=== PATIENT | female | born 1985 | race Caucasian/White ===

== ENCOUNTER 2021-08-01 13:05 | Emergency (ER) | payer MEDICARE, OTHER ==
[~2021-08-01] VITALS: Ht 167.6 cm; Wt 91.3 kg
[2021-08-01 13:39] VITALS: BP 130/81
[2021-08-01 14:33] LABS: INFLUENZA A PATIENT NEGATIVE (NEGATIVE); INFLUENZA B PATIENT NEGATIVE (NEGATIVE)
--- NOTE | 2021-08-01 15:20 | RAD ---
INDICATION: Reason: cough, chest tightness / Spl. Instructions: / History: COMPARISON: None. FINDINGS: Single view of chest obtained. Cardiac mediastinal silhouette is unremarkable. Mild haziness left lung base. No gross osseous destructive lesion. IMPRESSION: * Mild haziness left lung base could be secondary to atelectasis but mild infiltrate not excluded. Electronically signed by: Tank Hickman MD (08/01/2021 3:18 PM) [id number]
[2021-08-01] MEDS ORDERED: CEFD300C PO (16:01)
[2021-08-01] MEDS ORDERED: ONDA4TAB12 PO (16:09)
--- NOTE | 2021-08-01 16:09 | PHYS DOC ---
Past Medical History Additional Past Medical Histor: PTSD Past Surgical History: Hysterectomy Smoking Status: Current Every Day Smoker Alcohol Use: None General Adult EDM: Chief Complaint: GENERALIZED BODY ACHES HPI: HPI: Patient is a 35 year old female without pertinent past medical history who presents with 4-5 days of cough, congestion, fever, chills, body aches. Describes mild shortness of breath and chest pressure. Slightly worse with deep breaths. No leg swelling, recent surgery, hx of vte, blood thinners, estrogen containing medications, or hemoptysis. She believes she has had exposure to covid due to being around her niece who was ill with a URI. partially vaccinated against covid. 1 dose of mrna vaccine. Review of Systems: Review of Systems: Constitutional: Reports fever and chills Eyes: Denies change in visual acuity. [] HENT: Reports nasal congestion Respiratory: Reports cough and shortness of Cardiovascular: Reports pleuritic chest tightness. Denies lower extremity edema. GI: Denies abdominal pain, nausea, vomiting, bloody stools or diarrhea. [] : Denies dysuria. [] Musculoskeletal: Denies back pain or joint pain. [] Integument: Denies rash. [] Neurologic: Denies headache, focal weakness or sensory changes. [] Psychiatric: Denies depression or anxiety. [] Heart Score: C/O Chest Pain: No Allergies: Allergies: Allergies Coded Allergies Type Severity Reaction Last Updated Verified Penicillins Allergy Mild Rash 08/01/21 Yes Physical Exam: PE: Constitutional: Well developed, well nourished, no acute distress, non-toxic appearance. [] HENT: Normocephalic, atraumatic Neck: Normal range of motion, no tenderness, supple, no stridor. [] Cardiovascular:Heart rate regular rhythm, no murmur [] Lungs & Thorax: Bilateral breath sounds clear to auscultation [] Abdomen: Bowel sounds normal, soft, no tenderness, no masses, no pulsatile masses. [] Skin: Warm, dry, no erythema, no rash. [] Back: No tenderness, no CVA tenderness. [] Extremities: No tenderness, no cyanosis, no clubbing, ROM intact, no edema. [] Neurologic: Alert and oriented X 3, normal motor function, normal sensory function, no focal deficits noted. [] Psychologic: Affect normal, judgement normal, mood normal. [] Current Patient Data: Labs: Laboratory Tests Test 08/01/21 14:05 Influenza Type A Antigen Negative (NEGATIVE) Influenza Type B Antigen Negative (NEGATIVE) SARS-CoV-2 Antigen (Rapid) Negative (NEGATIVE) Vital Signs: Vital Signs Date Time Temp Pulse Resp B/P (MAP) Pulse Ox O2 Delivery O2 Flow Rate FiO2 08/01/21 13:39 97.5 82 18 130/81 (97) 96 Room Air 97.5 EKG: EKG: [] Sinus rhythm. Rate 72. Normal axis. Normal intervals. No ischemic changes. Radiology/Procedures: Radiology/Procedures: [] Impression: [facility] [address] [place], [place] [id number] IMAGING REPORT Signed PATIENT: MATI TUCKER JACCOUNT: [id number] : 1985 LOCATION: ER AGE: 35 SEX: F EXAM STATUS: REG ER ORD. PHYSICIAN: FATIMAH BYRD MD REASON: cough, chest tightness PROCEDURE: CHEST AP ONLY INDICATION: Reason: cough, chest tightness / Spl. Instructions: / History: COMPARISON: None. FINDINGS: Single view of chest obtained. Cardiac mediastinal silhouette is unremarkable. Mild haziness left lung base. No gross osseous destructive lesion. IMPRESSION: * Mild haziness left lung base could be secondary to atelectasis but mild infiltrate not excluded. Electronically signed by: Alissa Hickman MD (08/01/2021 3:18 PM) [id number] DICTATED and SIGNED BY: ALISSA HICKMAN MD DATE: 08/01/21 [id number] 0 Course & Med Decision Making: Course & Med Decision Making Pertinent Labs and Imaging studies reviewed. (See chart for details) Patient is a 35-year-old female without pertinent past medical history presents with 4-5 days of cough, congestion, myalgias, subjective fever, and mild shortness of breath and chest tightness. On arrival is afebrile, with normal heart rate, BP, and satting well on room air. Normal work of breathing and clear auscultatory exam. Her rapid Covid test is negative. PCR is pending. Chest x-ray shows faint o pacity in the left base but potentially represent pneumonia given her symptom complex. Given negative Covid test will treat empirically for community- acquired pneumonia. She has a penicillin allergy so cefdinir will be elected for monotherapy. PERC negative. No further work-up for PE. Discussed checking electrolytes given frequent vomiting and diarrhea, but patient declined. Jose Disclaimer: Jose Disclaimer: This electronic medical record was generated, in whole or in part, using a voice recognition dictation system. Departure Departure Impression: Primary Impression: Pneumonia Disposition: HOME / SELF CARE / HOMELESS Condition: STABLE Patient Instructions: Pneumonia, Adult Additional Instructions: Your chest x-ray showed a concerning area that may be an early pneumonia. Your rapid Covid test was negative, but the more definitive PCR test is still pending. You should receive a call if this is positive. It should be resulted by amisha orrow afternoon, if you do not hear about your results by tomorrow evening please call the hospital to get your results. Please self isolate until you know the results of this test. Please take the entire prescription of antibiotics unless directed otherwise. For pain tylenol and ibuprofen are best used on a schedule. Please alternate between the two. -Tylenol 1000 mg every 6 hours (do not exceed 4000 mg in one day) -Ibuprofen 600 mg every 6 hours. Take with food. Do not take for more than 1 week. If your Covid does result positive. Please visit CDC.gov to determine how long you need to self isolate. Scripts Ondansetron (ONDANSETRON ODT) 4 Mg Tab.rapdis 1 TAB PO PRN Q6-8HRS, #16 TAB 0 Refills Prov: FATIMAH BYRD MD 08/01/21 Cefdinir (CEFDINIR) 300 Mg Capsule 1 CAP PO BID for 7 Days, #14 CAP 0 Refills Prov: FATIMAH BYRD MD 08/01/21 FATIMAH BYRD MD Aug 01, 2021 16:09
--- NOTE | 2021-08-01 17:01 | EKG ---
[facility] [address] [place] [address] Test Date: 2021-08-01 Test Time: 15:13:36 Pat Name: MATI TUCKER Department: Room: Gender: F Bilingual Hr Generalist: : 1985 Requested By: FATIMAH BYRD Order Number: [id number] Reading MD: Klever Bailey Measurements Intervals [place] Rate: 72 P: 43 KS: 130 QRS: 43 QRSD: 80 T: 34 QT: 382 QTc: 420 Interpretive Statements SINUS RHYTHM NORMAL ECG RI6.02 No previous ECG available for comparison Electronically Signed On 08-02-2021 19:31:42 [employer] [employer] by Klever Bailey
== END 2021-08-01 16:14 | disposition home or self-care (01) ==
LOC: ER 13:05
DX: U07.1 COVID-19 (principal); J18.9 Pneumonia, unspecified organism; F17.200 Nicotine dependence, unspecified, uncomplicated
CPT/HCPCS: 71045; 87428; 93005; 99285; U0003; U0005

== ENCOUNTER 2021-11-14 21:25 | Emergency (ER) | payer OTHER ==
[~2021-11-14] VITALS: Ht 170.2 cm; Wt 93.2 kg
[~2021-11-14 21:25] MED LIST: CEFD300C PO; ONDA4TAB12 PO
[2021-11-14 21:45] VITALS: BP 127/82
[2021-11-14] MEDS ORDERED: LIDOCAINE/EPI/TETRACAINE TOPICAL GEL 3 ML. TP ONE (23:00)
[2021-11-14] MEDS ORDERED: diazePAM 5 MG TABLET PO ONE (23:00)
[2021-11-14] MEDS ORDERED: LIDOCAINE WITH 8.4% SOD BICARB 3 ML DISP.SYRIN. INJ ONE (23:00)
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
== END 2021-11-14 23:36 | disposition home or self-care (01) ==
LOC: ER 21:25
DX: S01.81XA Laceration without foreign body of other part of head, initial encounter (principal); F17.200 Nicotine dependence, unspecified, uncomplicated; F43.10 Post-traumatic stress disorder, unspecified; Y08.89XA Assault by other specified means, initial encounter; Y93.89 Activity, other specified; Y92.89 Other specified places as the place of occurrence of the external cause; Y99.8 Other external cause status
CPT/HCPCS: 12011; 99283; J3490